=== PATIENT | female | born 1995 | race Caucasian/White ===

== ENCOUNTER 2022-08-27 09:09 | Outpatient (CLI) | payer BC, SELFPAY ==
--- NOTE | 2022-08-27 09:15 | CRLHL7_ITS ---
For Patients: As a result of the Century Cures Act, medical imaging exams and procedure reports are released immediately into your electronic medical record. You may view this report before your referring provider. If you have questions, please contact your health care provider. LEFT BREAST ULTRASOUND INDICATION: 27-year-old female. Palpable abnormality since June 2022. The patient states that this lump has been growing and there is now some discomfort or pain associated with this. TECHNIQUE: Directed LEFT breast ultrasound with this radiologist present. FINDINGS: At the 10 o`clock position 5 cm from the nipple is a fairly well circumscribed predominantly solid nodule measuring 1.0 x 0.7 x 1.1 cm. There are two very tiny cystic components associated with this nodule. There is some posterior shadowing. An ultrasound-guided biopsy is recommended for further characterization. These findings were discussed in detail with the patient. She agrees to this course of action. IMPRESSION: Predominantly solid shadowing nodule 10 o`clock position 5 cm from the nipple measuring up to nearly 1.1 cm. Ultrasound-guided biopsy and clip placement is recommended. BI-RADS Category 4: Suspicious A lay language report of this examination will be provided to the patient. Dictated by: Surendra Nicole MD @08/27/2022 10:20:49 AM tom/Dictated by: Surendra Nicole MD @ 08/27/2022 10:20:00 AM (Electronically Signed)
== END 2022-08-27 09:10 | disposition home or self-care (01) ==
LOC: US 09:09
PROVIDERS: Visit Provider Physician Assistant
DX: N63.20 Unspecified lump in the left breast, unspecified quadrant (principal)
CPT/HCPCS: 76642

== ENCOUNTER 2022-08-31 08:52 | Outpatient (CLI) | payer BC, SELFPAY ==
--- NOTE | 2022-08-31 09:15 | CRLHL7_ITS ---
For Patients: As a result of the Century Cures Act, medical imaging exams and procedure reports are released immediately into your electronic medical record. You may view this report before your referring provider. If you have questions, please contact your health care provider. ULTRASOUND-GUIDED BREAST BIOPSY AND POST-BIOPSY DIGITAL MAMMOGRAM FOR BIOPSY MARKER PLACEMENT CLINICAL HISTORY: Indeterminate nodule. COMPARISON STUDIES: Ultrasound 08/27/2022. TECHNIQUE: Real-time ultrasound with image documentation was used for targeting the breast lesion. Core biopsy specimens were obtained using an automated gun with a 18-gauge biopsy needle. Post-biopsy CC and ML digital mammograms were obtained to document position of the biopsy marker. CONSENT and TIME OUT: The procedure, risks, and alternatives were explained to the patient and a consent was signed. [place] Protocol was followed including pre-procedure verification that relevant information/documentation was available, reviewed and properly matched to the patient; consent accurate and complete; and equipment and supplies available. Time Out was conducted just prior to starting procedure to verify the four required elements: patient identity, correct side/site marked (if applicable), procedure, relevant images/results properly labeled and displayed (if applicable). PROCEDURE: The patient was positioned supine on the ultrasound table. The breast was prepped with ChloraPrep. 8 cc of 1% lidocaine was injected for local anesthesia. Core samples were obtained. A sterile metal biopsy clip was placed percutaneously to brendan the lesion position within the breast. The specimens were placed in 10% formalin and sent to the pathology department. Pressure was held on the biopsy site until all bleeding subsided. The skin incision was closed with Steri-Strips. An ice pack was positioned over the biopsy site. Post-biopsy instructions were reviewed with the patient, and a written copy was given to her. LATERALITY: LEFT breast. LESION: Hypoechoic solid nodule measuring 10 x 7 x 11 millimeters at 10 o`clock 5 cm from the nipple. SUSPICION FOR MALIGNANCY: Low. NUMBER OF SAMPLES: 5. BIOPSY CLIP SHAPE: Oval. PROXIMITY OF CLIP TO TARGET: Within the lesion. IMPRESSION: Ultrasound-guided breast biopsy. When the pathology report is available, an addendum to this report will be made. ACR not applicable Dictated by Tj Oliveira MD @ 08/31/2022 10:00:55 AM jj/Dictated by: Tj Oliveira MD @ 08/31/2022 10:00:00 AM ----ADDENDUM---- Pathology consistent with benign fat necrosis, fibrosis and inflammation. No evidence of malignancy. Findings are concordant. Routine clinical follow-up and age-appropriate screening mammography. Dictated by: Tj Oliveira MD @09/04/2022 8:38:56 AM Signed by:?Tj Oliveira MD @09/04/2022 3:08:09 PM (Electronically Signed)
--- NOTE | 2022-08-31 10:00 | CRLHL7_ITS ---
For Patients: As a result of the Century Cures Act, medical imaging exams and procedure reports are released immediately into your electronic medical record. You may view this report before your referring provider. If you have questions, please contact your health care provider. PLEASE SEE ULTRASOUND-GUIDED LEFT BREAST BIOPSY PERFORMED SAME DAY CRL:ishan olmstead/Dictated by: Tj Oliveira MD @ 08/31/2022 10:00:00 AM (Electronically Signed)
== END 2022-08-31 08:53 | disposition home or self-care (01) ==
LOC: US 08:52
PROVIDERS: Visit Provider Physician Assistant
DX: N63.20 Unspecified lump in the left breast, unspecified quadrant (principal); R92.8 Other abnormal and inconclusive findings on diagnostic imaging of breast
CPT/HCPCS: 19083; 77065; 88305; A4648; A4649

== ENCOUNTER 2023-09-16 10:47 | Day surgery (SDC) | payer BC, SELFPAY ==
[2023-09-16 10:53] VITALS: BP 131/88; PULSE 85; RESP 16; TEMP 36.4; O2SAT 97; BMI 45.7
[2023-09-16 11:12] LABS: Appearance Urine Clear (Clear); Bilirubin Urine Negative (Negative); Blood Urine Negative (Negative); Color Urine Yellow (Yellow); Glucose Urine Negative (Negative); Ketones Urine Negative (Negative); Leukocyte Esterase Urine Negative (Negative); Nitrite Urine Negative (Negative); Protein Urine Negative (Negative); Urobilinogen Urine 0.2 (0.2-1.0); pH Urine 7.5 (5.0-8.5)
--- NOTE | 2023-09-16 12:17 | US_ITS ---
Patient: SLIM BRITO Facility:?[facility] Patient ID:?[id number] Site Patient ID:?[id number]. Site :?[id number] Study:?US-Abdomen -09/16/2023 12:49:05 PM Ordering Physician:ALMA HO Final Report: INDICATION: RUQ PAIN COMPARISON: none TECHNIQUE: Real time cardona scale imaging and color Doppler analysis was performed of the right upper quadrant. FINDINGS: The patient`s liver is of normal size and has uniform echogenicity. There is a normal appearance of the hepatic IVC and proximal abdominal aorta. There is no evidence of ascites. The gallbladder is distended and there are small layering stones and echogenic sludge. The gallbladder wall measures 3 mm in thickness. The common bile duct is of normal size and measures 6 mm in diameter at the level of the rebecca hepatis. The pancreas appears normal. There is no evidence of a stone or hydronephrosis within the right kidney. The right kidney measures 10.0 cm in length. IMPRESSION: Small layering stones and a mild amount of layering echogenic sludge within the gallbladder lumen consistent with cholelithiasis. The gallbladder is distended without biliary duct obstruction. Findings are most consistent with cholelithiasis although can not exclude early cholecystitis. Dictated by Tj Oliveira MD @ 09/16/2023 12:54:19 PM Signed by:?Tj Oliveira MD @09/16/2023 12:54:19 PM (Electronic Signature)
[2023-09-16 12:26] LABS: RBC Urine 0-2 (0-2); Squamous Epithelial Cell Urine Moderate (None-Few); WBC Urine 0-2 (0-5)
[2023-09-16] MEDS: KETOROLAC 15 MG/ML inj IVP ×2 (12:40→16:58)
--- NOTE | 2023-09-16 12:44 | ED_ITS ---
HPI - General Adult General Date Seen: 09/16/23 Chief complaint: Flank Pain Stated complaint: Upper abdominal pain Time Seen by Provider: 09/16/23 10:57 History of Present Illness HPI narrative: This is a very pleasant 28-year-old female with a history of anxiety (on Lexapro), but otherwise healthy. No previous surgical history. She presents to the ER today with her for evaluation of right upper quadrant abdominal pain radiating to right flank and right shoulder blade. She does recall that she had an episode of pain that occurred about 10 days or 2 weeks ago and went away after about 30 minutes. She has been healthy and well since then. She had [place] and potatoes for Ketto's dinner last night. She was awoken from sleep at about 4:00 a.m. this morning with intense pain in the right upper quadrant and right flank. It feels like a sharp pain. It radiates to the right shoulder blade. She has been mildly nauseous but no vomiting. Bowel movements normal. Urination normal. No fever or chills. No rash. No urinary symptoms. Related Data Home Medications Medication Instructions Recorded Confirmed venlafaxine 150 mg 150 mg PO QAM 08/20/22 09/16/23 capsule,extended release 24 hr omeprazole 09/16/23 Allergies Allergy/AdvReac Type Severity Reaction Status Date / Time buspirone [From BuSpar] Allergy Mild Depression Verified 09/16/23 10:57 [facility] Medical History History of anxiety History of depression History of migraine History of premature rupture of membranes (PPROM) (03/13/21) Surgical History History of wisdom tooth extraction (2011) Family History (Updated 08/20/22 @ 13:17 by Cynthia Luong PA-C) Mother Migraine Paternal Grandfather Heart disease Maternal Grandfather Melanoma Social History (Updated 08/20/22 @ 13:18 by Cynthia Luong PA-C) Narrative: [id number] mom. . Nonsmoker. 1-2 drinks per month. No illicit drug use. Smoking Status: Never smoker How often do you have a drink containing alcohol: 2-4 times a month AUDIT-C Alcohol total score: 2 Non-prescribed substance use: denies use Exam Narrative: Exam Narrative: Constitutional: Appears well-developed and well-nourished. Alert. Uncomfortable, but Conversant. Non toxic. HENT: Head: Atraumatic. Nose: Nose normal. Mouth/Throat: Oral mucosa is clear and moist. no trismus. Pharynx normal. Tonsils symmetric. No tonsillar enlargement, erythema, or exudate. Eyes: Conjunctivae normal. EOM normal. Pupils equal, round, and reactive to light. No scleral icterus. Neck: Normal range of motion. Neck supple. No tracheal deviation present. Cardiovascular: Normal rate, regular rhythm. No gallop. No friction rub. No murmur heard. Symmetric radial artery pulses Pulmonary/Chest: Effort normal. No stridor. No respiratory distress. No wheezes. No rales. No rhonchi . No tenderness. Abdominal: Soft. Bowel sounds normal. No distension. No mass. Marked right upper quadrant tenderness. Positive Lopez sign. Mild right CVA tenderness. No right lower quadrant, suprapubic, or left-sided abdominal tenderness. No rebound. No guarding. Musculoskeletal: RUE: Normal range of motion. No tenderness. No deformity LUE: Normal range of motion. No tenderness. No deformity RLE: Normal range of motion. No edema. No tenderness. No deformity LLE: Normal range of motion. No edema. No tenderness. No deformity Neurological: Alert and oriented to person, place, and time. Normal strength. CN II-VII intact. No sensory deficit. GCS eye subscore is 4. GCS verbal subscore is 5. GCS motor subscore is 6. Normal coordination Skin: Skin is warm and dry. No rash noted. No pallor. Normal capillary refill. Psychiatric: Normal mood. Normal affect, allowing for discomfort. Const: Vital Signs, click to edit/add: Vital Signs - 24 hr 09/16/23 10:53 Temperature 97.6 F Pulse Rate [Right Pulse Oximeter] 85 Respiratory Rate 16 Blood Pressure [Ri ght Upper Arm] 131/88 Pulse Oximetry 97 Oxygen Delivery Me thod Room Air Course Vital Signs Vital signs: Initial Vital Signs Temperature 97.6 F 09/16/23 10:53 Temperature Source Temporal Artery Scan 09/16/23 10:53 Pulse Rate 85 09/16/23 10:53 Respiratory Rate 16 09/16/23 10:53 Blood Pressure 131/88 09/16/23 10:53 Blood Pressure Mean 102 09/16/23 10:53 Blood Pressure Position Sitting 09/16/23 10:53 Pulse Oximetry 97 09/16/23 10:53 Oxygen Delivery Method Room Air 09/16/23 10:53 Vital Signs Temperature 97.6 F 09/16/23 10:53 Pulse Rate 85 09/16/23 10:53 Respiratory Rate 16 09/16/23 10:53 Blood Pressure 131/88 09/16/23 10:53 Pulse Oximetry 97 09/16/23 10:53 Oxygen Delivery Method Room Air 09/16/23 10:53 Temperature 97.5 F L 09/16/23 15:57 Pulse Rate 73 09/16/23 15:57 Respiratory Rate 16 09/16/23 15:57 Blood Pressure 161/83 H 09/16/23 15:57 Pulse Oximetry 100 09/16/23 15:57 Oxygen Delivery Method Room Air 09/16/23 15:57 Medications Administered Medications: Generic Name Dose Route Start Last Admin Trade Name Freq PRN Reason Stop Dose Admin Dextrose/Sodium Chloride 1,000 mls @ 125 mls/hr 09/16/23 15:25 09/16/23 15:32 5 % Dextrose/0.9% Sod Chloride IV 125 mls/hr .Q8H MESHA Administration Discontinued Medications Generic Name Dose Route Start Last Admin Trade Name Freq PRN Reason Stop Dose Admin Ketorolac Tromethamine 15 mg 09/16/23 12:17 09/16/23 12:40 Ketorolac 15 Mg/Ml Inj IVP 09/16/23 12:18 15 mg ONCE ONE Administration Medical Decision Making [facility] Narrative Medical decision making narrative: Presented to the Emergency Department with right upper quadrant abdominal pain radiating to her right flank and right shoulder blade. Initial clinical suspicion is for possible acute cholecystitis versus biliary colic. Rule out choledocholithiasis, gallstone pancreatitis. The differential diagnosis of abdominal pain includes: Appendicitis, Bowel Obstruction, Ulcer, Ischemia, right-sided Diverticulitis, Pancreatitis, UTI, kidney stone, Enteritis/Colitis, amongst many other etiologies. Urinalysis is normal. Gallbladder ultrasound confirms gallstones and possible early mild cholecystitis. Common bile duct is normal on the gallbladder ultra sound. LFTs are abnormal with transaminases 400 ans 800. Bilirubin is normal. White count normal. Lipase normal. Discussed with surgery, Dr. Dias. She agrees that this point the patient needs urgent (but not emergent) cholecystectomy. Dr. Dias does not feel the patient needs ERCP or MRCP. If the patient's pain is resolved would be appropriate to discharge and follow-up with surgery tomorrow in clinic. If ongoing pain, admit to the hospital for pain control and NPO status. No antibiotics at this time. Re-evaluated discussed with the patient. Pain is much improved after Toradol but still going on. She is not comfortable discharging to home. Admission arranged with hospitalist, Dr. Guadarrama. Should be NPO overnight with plan for surgery consultation and probable shyam cystectomy tomorrow. Lab Data Labs: Lab Results 09/16/23 09/16/23 09/16/23 Range/Units 11:00 12:02 12:47 WBC 8.74 (4.50-11.00) K/uL RBC 4.69 (4.00-5.20) m/uL Hgb 13.3 (12.0-16.0) gm/dL Hct 40.9 (33.0-51.0) % MCV 87 (80-100) fL MCH 28 (26-34) pg MCHC 33 (32-36) gm/dL RDW Coeff of Artur 13.6 (11.5-15.5) % Plt Count 327 (140-440) K/uL Neut % (Auto) 76.4 H (42.0-72.0) % Lymph % (Auto) 16.7 L (20-44) % [place] % (Auto) 5.6 (0.0-11.0) % Eos % (Auto) 0.3 (0.0-7.0) % Baso % (Auto) 0.2 (0.0-3.0) % Neut # (Auto) 6.70 (1.7-7.0) K/uL Lymph # (Auto) 1.50 (0.90-2.90) K/uL [place] # (Auto) 0.50 (0.00-0.90) K/UL Eos # (Auto) 0.03 (0.00-0.50) K/uL Baso # (Auto) 0.02 (0.00-0.30) K/uL Abs Immat Gran (auto) 0.07 (0.00-0.30) K/uL Imm/Tot Granulo (auto) 0.8 % Sodium 138 (135-149) mmol/L Potassium 4.1 (3.6-5.1) mmol/L Chloride 106 (96-114) mmol/L Carbon Dioxide 25 (20-32) mmol/L Anion Gap 7 (7-15) mEq/L BUN 14 (5-24) mg/dL Creatinine 0.5 (0.5-1.5) mg/dL Estimated Creat Clear 130.12 Estimated GFR 129 ml/min Glucose 104 (60-115) mg/dL Calcium 9.4 (8.4-10.6) mg/dL Total Bilirubin 1.4 (0.1-1.5) mg/dL AST 821 H (12-35) U/L ALT 481 H (4-35) U/L Alkaline Phosphatase 94 (40-150) U/L Total Protein 8.1 (6.0-8.3) g/dL Albumin 4.6 (3.3-5.0) g/dL Lipase 81 (23-300) U/L Urine Color Yellow (Yellow) Urine Appearance Clear (Clear) Urine pH 7.5 (5.0-8.5) Ur Specific [place] 1.020 (1.000-1.030) Urine Protein Negative (Negative) Urine Glucose (UA) Negative (Negative) Urine Ketones Negative (Negative) Urine Blood Negative (Negative) Urine Nitrite Negative (Negative) Urine Bilirubin Negative (Negative) Urine Urobilinogen 0.2 (0.2-1.0) Ur Leukocyte Esterase Negative (Negative) Urine RBC 0-2 (0-2) Urine WBC 0-2 (0-5) Ur Squamous Epith Cells Moderate A (None-Few) Urine Bacteria None (None) Urine HCG, Qual Negative (Negative) Lab Acknowledgement Test Added Imaging Data US gallbladder: Attestation: I have reviewed the pertinent imaging results. Radiologist's impression: IMPRESSION: Small layering stones and a mild amount of layering echogenic sludge within the gallbladder lumen consistent with cholelithiasis. The gallbladder is distended without biliary duct obstruction. Findings are most consistent with cholelithiasis although can not exclude early cholecystitis. Discharge Plan Discharge Clinical Impression: Abnormal LFTs, Acute cholecystitis
[2023-09-16 13:14] LABS: Chloride* 106 mmol/L (96-114)
[2023-09-16 13:15] LABS: Albumin* 4.6 g/dL (3.3-5.0); Potassium* 4.1 mmol/L (3.6-5.1); Sodium* 138 mmol/L (135-149)
[2023-09-16 13:18] LABS: Alanine Aminotransferase* 481 U/L (4-35); Alkaline Phosphatase* 94 U/L (40-150); Anion Gap 7 mEq/L (7-15); Bilirubin Total* 1.4 mg/dL (0.1-1.5); Blood Urea Nitrogen* 14 mg/dL (5-24); Calcium* 9.4 mg/dL (8.4-10.6); Carbon Dioxide* 25 mmol/L (20-32); Creatinine* 0.5 mg/dL (0.5-1.5); Est. Creatinine Clearance* 130.12; Estimated Glomerular Filt Rate 129 ml/min; Glucose* 104 mg/dL (60-115); Lipase* 81 U/L (23-300); Total Protein* 8.1 g/dL (6.0-8.3)
[2023-09-16 13:19] LABS: Basophils Absolute Auto 0.02 K/uL (0.00-0.30); Basophils Percent Auto 0.2 % (0.0-3.0); Eosinophils Absolute Auto 0.03 K/uL (0.00-0.50); Eosinophils Percent Auto 0.3 % (0.0-7.0); Hematocrit 40.9 % (33.0-51.0); Hemoglobin* 13.3 gm/dL (12.0-16.0); Immature Granulocytes Abs Auto 0.07 K/uL (0.00-0.30); Immature Granulocytes Pct Auto 0.8 %; Lymphocytes Percent Auto 16.7 % (20-44); Mean Corpuscular HGB Conc 33 gm/dL (32-36); Mean Corpuscular Hemoglobin 28 pg (26-34); Mean Corpuscular Volume 87 fL (80-100); Monocytes Percent Auto 5.6 % (0.0-11.0); Neutrophils Percent Auto 76.4 % (42.0-72.0); Platelet Count* 327 K/uL (140-440); RDW Coefficient of Variation % 13.6 % (11.5-15.5); Red Blood Count 4.69 m/uL (4.00-5.20); Slide Review Reflex No; White Blood Count* 8.74 K/uL (4.50-11.00)
[2023-09-16 13:25] LABS: Aspartate Amino Transferase* 821 U/L (12-35)
[2023-09-16 15:06] LABS: Ur HCG Qualitative* Negative (Negative)
[2023-09-16] MEDS: 5 % DEXTROSE/0.9% SOD CHLORIDE 1,000 ML 125 ML IV (15:32)
[2023-09-16 15:57] VITALS: BP 161/83; PULSE 73; RESP 16; TEMP 36.4; O2SAT 100; BMI 46.0
[2023-09-16 16:17] VITALS: RESP 16; O2SAT 100
--- NOTE | 2023-09-16 16:23 | P.IMHP_ITS ---
Hospitalist- H&P: HPI History of Present Illness Date Seen: 09/16/23 Chief complaint: Upper abdominal pain Narrative: Nicolasa Monroy is a previously healthy 28 year old female with a past medical history significant for depression and obesity who presented to the ER with RUQ abdominal pain. She states that she had an episode of similar pain about 2 weeks ago that lasted for about 24 hours, but was self resolved. It recurred this morning and has been unrelenting so she sought care. Pain radiates to her right shoulder. She has not had any vomiting, but notes some nausea. She denies any change in her bowels and his currently menstruating. She denies any fevers or chills and has no other concerning symptoms. In the ER, her laboratory work up was reassuring with no leukocytosis, no evidence of UTI and normal BMP. She does have significantly elevated AST at 821 and ALT of 421. Alkaline phosphatase, bilirubin and lipase are all within normal limits. Exam was notable for a positive Lopez's sign and US confirms gallstones and sludge. There is no definite evidence of cholecystitis, but may be early. Her pain in the ER responded to toradol. The ER physician reportedly spoke with Dr. Dias from general surgery who will plan for lap shyam tomorrow. Patient was offered to go home and return for surgery tomorrow vs stay overnight for ongoing symptom management. Patient elected to stay as her pain has been difficult to control. She is admitted under observation for symptomatic cholelithiasis vs early cholecystitis. Per ER, general surgery did not request antibiotic use or MRCP. Review of Systems Status of ROS: Reports: 10 or more systems reviewed and unremarkable except as noted in History and below [facility] Medical History History of anxiety History of depression History of migraine History of premature rupture of membranes (PPROM) (03/13/21) Surgical History History of wisdom tooth extraction (2011) Family History (Updated 08/20/22 @ 13:17 by Cynthia Luong PA-C) Mother Migraine Paternal Grandfather Heart disease Maternal Grandfather Melanoma Social History (Updated 08/20/22 @ 13:18 by Cynthia Luong PA-C) Narrative: [id number] mom. . Nonsmoker. 1-2 drinks per month. No illicit drug use. Smoking Status: Never smoker How often do you have a drink containing alcohol: 2-4 times a month AUDIT-C Alcohol total score: 2 Non-prescribed substance use: denies use Meds Home Medications and Allergies Home Medications Medication Instructions Recorded Confirmed Type venlafaxine 150 mg 150 mg PO QAM 08/20/22 09/16/23 History capsule,extended release 24 hr omeprazole 20 mg capsule,delayed 20 mg PO DAILY 09/16/23 09/16/23 History release Allergies Allergy/AdvReac Type Severity Reaction Status Date / Time buspirone [From BuSpar] Allergy Mild Depression Verified 09/16/23 10:57 Exam Narrative: Exam Narrative: General: Well appearing, mildly uncomfortable. HEENT: NCAT, MMM, Mallampati class 1 Resp: Breathing is comfortable and unlabored, CTAB CV: RRR, no m/g/r Abd: Obese, tender in RUQ, no clear hepatosplenomegaly but exam limited by body habitus Extremities: No pitting edema Skin: Warm and dry, no rash on observed skin Neuro: Alert, oriented, moving all extremities with no lateralizing deficits noted Const: Vital Signs, click to edit/add: Vital Signs - 24 hr 09/16/23 10:53 09/16/23 15:57 Temperature 97.6 F 97.5 F L Pulse Rate [Pulse Oximeter] 73 Pulse Rate [Right Pulse Oximeter] 85 Respiratory Rate 16 16 Blood Pressure [Le ft Arm] 161/83 H Blood Pressure [Ri ght Upper Arm] 131/88 Pulse Oximetry 97 100 Oxygen Delivery Me thod Room Air Room Air Hospitalist - H&P: Result Labs Labs: Short CBC 09/16/23 Range/Units 12:47 WBC 8.74 (4.50-11.00) K/uL Hgb 13.3 (12.0-16.0) gm/dL Hct 40.9 (33.0-51.0) % Plt Count 327 (140-440) K/uL BMP 09/16/23 12:47 Sodium 138 Potassium 4.1 Chloride 106 Carbon Dioxide 25 BUN 14 Creatinine 0.5 Glucose 104 Calcium 9.4 Liver Function 09/16/23 Range/Units 12:47 Total Bilirubin 1.4 (0.1-1.5) mg/dL AST 821 H (12-35) U/L ALT 481 H (4-35) U/L Alkaline Phosphatase 94 (40-150) U/L Albumin 4.6 (3.3-5.0) g/dL Urine 09/16/23 Range/Units 11:00 Urine Color Yellow (Yellow) Urine Appearance Clear (Clear) Urine pH 7.5 (5.0-8.5) Ur Specific [place] 1.020 (1.000-1.030) Urine Protein Negative (Negative) Urine Glucose (UA) Negative (Negative) Imaging US - abdomen: Radiologist's impression: Small layering stones and a mild amount of layering echogenic sludge within the gallbladder lumen consistent with cholelithiasis. The gallbladder is distended without biliary duct obstruction. Findings are most consistent with cholelithiasis although can not exclude early cholecystitis. Assessment and Plan Assessment and plan (1) Acute cholecystitis: Problem comment: Patient presented with her second episode of right upper quadrant pain. Work up is concerning for early cholecystitis with cholelithiasis and sludge as well as a positive Lopez's sign. No leukocytosis or fevers. ER consulted with general surgeon, Dr. Dias, who will plan for lap shyam tomorrow and did not request MRCP or antibiotics. She is admitted overnight for pain control. Patient is obese, but no other comorbid concerning issues. No personal or family history of reactions to anesthesia, blood clots or early heart disease. -Clear liquid diet until midnight, then NPO -Zofran for nausea -Pain control -Appreciate general surgery Status: Acute (2) Abnormal LFTs: Problem comment: Patient denies significant alcohol use, but did have drinks last night as it was Crand[place]'s day. Alk Phos and bili are normal, AST and ALT significantly elevated. Suspect she may have passed a stone. No common bile duct dilation noted on US. -Follow LFTs Status: Acute (3) History of depression: Problem comment: Patient has been stable on Venlafaxine for many years -Continue venlafaxine Status: Chronic
--- NOTE | 2023-09-16 18:43 | PC.NURSE ---
End of shift [id number] - Pt arrived from ED at approximately 1545. Pt alert, oriented, cooperative. Pt reported pain in RUQ and R side as 5/10 on arrival. Pt reported pain increased with deep breaths and with movement. Pain managed with medication per MAR with verbalized improvement. Pt continent of bowel and bladder. Tolerating RA, clear liquid diet. VSS, afebrile, family at bedside. Pt appears to be resting comfortably at end of shift.
[2023-09-16 19:00] VITALS: BP 131/83; PULSE 71; RESP 16; TEMP 36.6; O2SAT 97
[2023-09-16] MEDS: 5 % DEXTROSE/0.9% SOD CHLORIDE 1,000 ML 100 ML IV (22:35)
[2023-09-16] MEDS: KETOROLAC 30 MG/ML inj IVP (23:27)
[2023-09-16] MEDS: SODIUM CHLORIDE 0.9 % (FLUSH) 10 ML SYRINGE 5 ML IVF (23:28)
[2023-09-16 23:30] VITALS: BP 126/71; PULSE 73; RESP 16; TEMP 36.5; O2SAT 97
[2023-09-17] VITALS (14 sets, daily range): BP systolic 96–128; BP diastolic 54–87; PULSE 61–83; RESP 10–16; TEMP 36.3–36.5; O2SAT 91–100
--- NOTE | 2023-09-17 06:47 | PC.NURSE ---
Pt alert and oriented x3. Afebrile. Pt reports 3/10 pain in URQ, pain managed with PRN Toradol. Pt has been NPO since 0000. Pt is up ad lorena in room. VSS. Pt slept throughout most of night. Night uneventful.
[2023-09-17 06:49] LABS: Hematocrit 35.6 % (33.0-51.0); Hemoglobin* 11.4 gm/dL (12.0-16.0); Mean Corpuscular HGB Conc 32 gm/dL (32-36); Mean Corpuscular Hemoglobin 28 pg (26-34); Mean Corpuscular Volume 88 fL (80-100); Platelet Count* 260 K/uL (140-440); Red Blood Count 4.03 m/uL (4.00-5.20); White Blood Count* 4.56 K/uL (4.50-11.00)
[2023-09-17 06:53] LABS: Slide Review Reflex No
[2023-09-17 07:06] LABS: Albumin* 3.3 g/dL (3.3-5.0); Chloride* 110 mmol/L (96-114)
[2023-09-17 07:07] LABS: Sodium* 140 mmol/L (135-149)
[2023-09-17 07:09] LABS: Anion Gap 5 mEq/L (7-15); Bilirubin Total* 1.9 mg/dL (0.1-1.5); Carbon Dioxide* 25 mmol/L (20-32); Creatinine* 0.5 mg/dL (0.5-1.5); Est. Creatinine Clearance* 130.12; Estimated Glomerular Filt Rate 129 ml/min
[2023-09-17 07:10] LABS: Alkaline Phosphatase* 103 U/L (40-150); Blood Urea Nitrogen* 10 mg/dL (5-24); Calcium* 8.2 mg/dL (8.4-10.6); Glucose* 108 mg/dL (60-115); Total Protein* 6.1 g/dL (6.0-8.3)
[2023-09-17] MEDS: 5 % DEXTROSE/0.9% SOD CHLORIDE 1,000 ML 100 ML IV (07:14)
[2023-09-17 07:16] LABS: Aspartate Amino Transferase* 739 U/L (12-35)
[2023-09-17 07:31] LABS: Alanine Aminotransferase* 891 U/L (4-35)
--- NOTE | 2023-09-17 09:45 | P.GSCN_ITS ---
History of Present Illness Consult details Date Seen: 09/17/23 Consult date: 09/17/23 Narrative: 28-year-old female was seen in the emergency room with right upper quadrant abdominal pain and I was asked by Dr. Barragan to see her in consultation. Patient states that yesterday she all of a sudden woke up with right upper quadrant pain. The pain was severe and not resolving. That made the patient come to the emergency room. She had some nausea but no vomiting. Patient had a similar episode of pain that was more severe 2 weeks ago. She also states that she had occasional mild episodes of similar pain that lasted only for an hour. In the emergency room she was found to have a normal WBC of 8.7. Her AST and ALT were elevated at 821 and 481. Her alkaline phosphatase, total bilirubin, and lipase were normal. An ultrasound was obtained that showed a distended gallbladder with cholelithiasis and sludge, the gallbladder wall was 3 mm and the common bile duct was 6 mm. This was concerning for an early acute cholecystitis. Review of Systems Narrative: General: no fevers HENT: no problems swallowing CV: no shortness of breath Resp: no cough GI: No nausea, vomiting, abdominal pain : no dysuria, no increased urinary frequency, no hematuria Skin: no new rashes Musculoskeletal: no back pain Neuro: no muscle weakness Psyche: no depression, no anxiety PFSH PFS Medical History History of migraine ?Z86.69 - Personal history of other diseases of the nervous system and sense organs (ICD-10) History of anxiety ?Z86.59 - Personal history of other mental and behavioral disorders (ICD-10) History of depression ?Z86.59 - Personal history of other mental and behavioral disorders (ICD-10) History of premature rupture of membranes (PPROM) (03/13/21) ?Z87.59 - Personal history of other complications of , childbirth and the puerperium (ICD-10) Surgical History History of wisdom tooth extraction (2011) ?K08.409 - Partial loss of teeth, unspecified cause, unspecified class (ICD- 10) Family History Mother Migraine Paternal Grandfather Heart disease Maternal Grandfather Melanoma Social History Narrative: [id number] mom. . Nonsmoker. 1-2 drinks per month. No illicit drug use. What is your current living situation?: I presently have a place to live Problems where you live: no known problems Problems where you live details: n/a In the past 12 months, utilities in danger of being shut off: no In past 12 months, lack of transportation kept you from medical appts, meetings, work, or getting things needed for daily living: no In the past 12 mos, have been you worried that your food would run out before you had money to buy more?: never true In the past 12 mos, the food you bought just didn't last and you didn't have money to buy more?: never true Smoking Status: Never smoker How often do you have a drink containing alcohol: monthly or less How often do you have six or more drinks on one occasion: Never AUDIT-C Alcohol total score: 1 Non-prescribed substance use: denies use Caffeine: Yes (2 cups coffee/day) How often does anyone, including family, friends and others, physically hurt you : never How often does anyone, including family, friends and others, insult or talk down to you: never How often does anyone, including family, friends and others, threaten you with harm: never How often does anyone, including family, friends and others, scream or curse at you: never Meds Home Medications and Allergies Home Medications Medication Instructions Recorded Confirmed Type venlafaxine 150 mg 150 mg PO QAM 08/20/22 09/16/23 History capsule,extended release 24 hr omeprazole 20 mg capsule,delayed 20 mg PO DAILY 09/16/23 09/16/23 History release Allergies Allergy/AdvReac Type Severity Reaction Status Date / Time buspirone [From BuSpar] Allergy Mild Depression Verified 09/16/23 10:57 Exam Narrative: Exam Narrative: General appearance: Alert, cooperative, and in no distress Pulmonary: Chest symmetric, lungs clear bilaterally Cardiovascular Heart: Regular rate and rhythm, S1, S2, no murmurs/rubs/gallops Gastrointestinal Abdominal: soft, not distended, tender to palpation in the right upper quadrant with equivocal Lopez sign. Skin: Normal skin color, texture, and turgor. No rashes or lesions. Psychiatric: Alert, cooperative, normal affect. Const: Vital Signs, click to edit/add: Vital Signs - 24 hr 09/16/23 10:53 09/16/23 15:57 09/16/23 15:57 Temperature 97.6 F 97.5 F L Pulse Rate [Pulse Oximeter] 73 Pulse Rate [Right Pulse Oximeter] 85 Respiratory Rate 16 16 16 Blood Pressure [Le ft Arm] 161/83 H Blood Pressure [Ri ght Upper Arm] 131/88 Pulse Oximetry 97 100 100 Oxygen Delivery Me thod Room Air Room Air Room Air 09/16/23 16:17 09/16/23 19:00 09/16/23 23:30 Temperature 97.8 F Pulse Rate [Pulse Oximeter] 71 Pulse Rate [Right Pulse Oximeter] Respiratory Rate 16 16 16 Blood Pressure [Le ft Arm] 131/83 Blood Pressure [Ri ght Upper Arm] Pulse Oximetry 100 97 Oxygen Delivery Me thod Room Air Room Air 09/16/23 23:30 09/17/23 03:35 09/17/23 07:00 Temperature 97.7 F 97.5 F L Pulse Rate [Pulse Oximeter] 73 81 72 Pulse Rate [Right Pulse Oximeter] Respiratory Rate 16 14 16 Blood Pressure [Le ft Arm] 126/71 119/70 Blood Pressure [Ri ght Upper Arm] Pulse Oximetry 97 99 Oxygen Delivery Wa thod Room Air Room Air 09/17/23 07:00 Temperature 97.7 F Pulse Rate [Pulse Oximeter] 72 Pulse Rate [Right Pulse Oximeter] Respiratory Rate 16 Blood Pressure [Le ft Arm] 128/87 Blood Pressure [Ri ght Upper Arm] Pulse Oximetry 100 Oxygen Delivery Me thod Room Air Results Labs Labs: Abnormal lab results 09/16/23 09/16/23 09/17/23 Range/Units 11:00 12:47 06:40 Hgb 11.4 L (12.0-16.0) gm/dL Neut % (Auto) 76.4 H (42.0-72.0) % Lymph % (Auto) 16.7 L (20-44) % Anion Gap 5 L (7-15) mEq/L Calcium 8.2 L (8.4-10.6) mg/dL Total Bilirubin 1.9 H (0.1-1.5) mg/dL AST 821 H 739 H (12-35) U/L ALT 481 H 891 H (4-35) U/L Ur Squamous Epith Cells Moderate A (None-Few) Diabetes panel 09/16/23 09/17/23 Range/Units 12:47 06:40 Sodium 138 140 (135-149) mmol/L Potassium 4.1 4.0 (3.6-5.1) mmol/L Chloride 106 110 (96-114) mmol/L Carbon Dioxide 25 25 (20-32) mmol/L BUN 14 10 (5-24) mg/dL Creatinine 0.5 0.5 (0.5-1.5) mg/dL Glucose 104 108 (60-115) mg/dL Calcium 9.4 8.2 L (8.4-10.6) mg/dL AST 821 H 739 H (12-35) U/L ALT 481 H 891 H (4-35) U/L Alkaline Phosphatase 94 103 (40-150) U/L Total Protein 8.1 6.1 (6.0-8.3) g/dL Albumin 4.6 3.3 (3.3-5.0) g/dL Calcium panel 09/16/23 09/17/23 Range/Units 12:47 06:40 Calcium 9.4 8.2 L (8.4-10.6) mg/dL Albumin 4.6 3.3 (3.3-5.0) g/dL Pituitary panel 09/16/23 09/17/23 Range/Units 12:47 06:40 Sodium 138 140 (135-149) mmol/L Potassium 4.1 4.0 (3.6-5.1) mmol/L Chloride 106 110 (96-114) mmol/L Carbon Dioxide 25 25 (20-32) mmol/L BUN 14 10 (5-24) mg/dL Creatinine 0.5 0.5 (0.5-1.5) mg/dL Glucose 104 108 (60-115) mg/dL Calcium 9.4 8.2 L (8.4-10.6) mg/dL Adrenal panel 09/16/23 09/17/23 Range/Units 12:47 06:40 Sodium 138 140 (135-149) mmol/L Potassium 4.1 4.0 (3.6-5.1) mmol/L Chloride 106 110 (96-114) mmol/L Carbon Dioxide 25 25 (20-32) mmol/L BUN 14 10 (5-24) mg/dL Creatinine 0.5 0.5 (0.5-1.5) mg/dL Glucose 104 108 (60-115) mg/dL Calcium 9.4 8.2 L (8.4-10.6) mg/dL Total Bilirubin 1.4 1.9 H (0.1-1.5) mg/dL AST 821 H 739 H (12-35) U/L ALT 481 H 891 H (4-35) U/L Alkaline Phosphatase 94 103 (40-150) U/L Total Protein 8.1 6.1 (6.0-8.3) g/dL Albumin 4.6 3.3 (3.3-5.0) g/dL All other labs normal. Progress Note:A&P Assessment and plan (1) Acute cholecystitis: Status: Acute Plan 28-year-old female admitted to the hospital with early acute cholecystitis. I discussed with the patient and her her laboratory and imaging fin dings. Her clinical exam and her ultrasound findings are concerning for acute cholecystitis. I recommended to proceed with laparoscopic cholecystectomy. The procedure was discussed in detail. The risks associated procedure including infection, bleeding, injury to intra-abdominal organs, and injury to the common bile duct were all discussed with the patient, and she agreed to proceed. Patient has been NPO today.
[2023-09-17] MEDS: CEFAZOLIN 2 GM INJ IVP (10:24)
--- NOTE | 2023-09-17 11:20 | W.ANESCHARGE ---
Anesthesia Charges Start Date/Time Anesthesia Start Date: 09/17/23 Anesthesia Start Time: 10:36 Stop Date/Time Anesthesia Stop Date: 09/17/23 Anesthesia Stop Time: 11:51
[2023-09-17] MEDS: BUPIVACAINE 0.25% 30 ML INJECTION (11:31)
--- NOTE | 2023-09-17 11:39 | PC.NURSE ---
Pt friendly and cooperative, VS WNL and LS COA. C/o 11/09 RUQ discomfort and declined pain medications prior to surgery. at bedside.
--- NOTE | 2023-09-17 11:52 | P.GSOP_ITS ---
Operative Note Date of procedure: 09/17/23 Pre-op diagnosis: 1. Acute cholecystitis. Post-op diagnosis: Same Type of Procedure: 1. Laparoscopic cholecystectomy. Indications: 28-year-old female presented to emergency room with right upper quadrant pain that was not improving getting worse. She had nausea but no vomiting. She had previous similar episodes of pain that resolved spontaneously. On clinical exam patient had tenderness to palpation in the right upper quadrant. Upon her workup in the emergency room she was found to have normal WBC. Her AST and ALT were elevated but bilirubin and alkaline phosphatase were normal. An ultrasound of the gallbladder was obtained that showed distended gallbladder with gallbladder wall of 3 mm. Her common bile duct was normal. Given patient's clinical history and her laboratory and imaging findings, acute cholecystitis was suspected, and laparoscopic cholecystectomy was recommended. The procedure was discussed in detail. The risks associated procedure including infection, bleeding, injury to intra-abdominal organs, and injury to the common bile duct were all discussed with the patient, and she agreed to proceed. Procedure Description: After discussing the risks and benefits of the procedure, the patient signed informed consent.? The operative site was marked and the patient was brought to the operating room and placed on the operating table in supine position.? Care was taken to pad the patient's pressure points.?? The patient was then Intubated by anesthesia.?? The operative site was then prepped and draped in the usual sterile fashion.? A time-out was then performed. A 5-mm laparoscopy port was placed in the left upper quadrant guided by a 5-mm laparoscope placed into a translucent trochar.~ Passage through the layers of the abdominal wall was visualized with the laparoscope.~ A pneumoperitoneum was established. A 0-degree 5-mm laparoscope was advanced into the abdomen. The abdomen was briefly surveyed, and no adhesions were noted. A 10-mm port were placed infraumbilically and two more 5 mm ports were placed on the right under direct visualization by laparoscope. The camera was then changed to 10 mm 30- degree scope and placed into the abdomen through the 10 mm port. The left upper quadrant port entrance was examined and no injury to intra-abdominal organs was identified. The gallbladder was identified. I was not able to grasp the gallbladder because it was distended. With laparoscopic needle and 60 mL syringe at least 30 mL of dark green bile was aspirated from the gallbladder. The needle was then removed. The gallbladder was grasped and retracted cephalad. The infundibulum was grasped and retracted laterally, exposing the peritoneum overlying the triangle of Calot. This was then divided and exposed in a blunt fashion and with hook cautery. Common bile duct was not identified but care was taken not to injure it. The cystic duct was clearly identified and bluntly dissected circumferentially. Cystic artery was identified and tissues around it were dissected off. The cystic artery and the cystic duct were clearly going into the gallbladder. The cystic duct was then doubly ligated with surgical clips on the patient's side and singly clipped on the gallbladder side and divided. The cystic artery was then similarly ligated with clips and divided as well. The gallbladder was dissected from the liver bed. In the lateral peritoneal edge In the gallbladder fossa, bleeding was seen. This was coming from a small artery coursing along the gallbladder. The bleeding was controlled with 5 mm clips proximally and distally. Edema was noted during the dissection of the gallbladder. When the gallbladder was free from the gallbladder fossa, it was placed into an Endo-Catch bag and removed through the infraumbilical incision. Surgical site was examined for bleeding. No bleeding was seen in the surgical field. The fascia of the infraumbilical incision was then closed with 0-0 vicryl using Stephane Jarocho needle under direct visualization. Pneumoperitoneum was completely reduced after viewing removal of the trocars under direct vision. The skin was then closed with 4-0 monocryl and steristrips were applied. Instrument, sponge, and needle counts were correct at closure and at the conclusion of the case. The patient was transferred to PACU in stable condition. Findings: Acute cholecystitis. Anesthesia: GETA Surgeon: Uma Hill MD Estimated blood loss (mL): 10 Specimen: Gallbladder Condition: stable Disposition: PACU
--- NOTE | 2023-09-17 12:03 | W.ANESCHARGE ---
Anesthesia Charges Start Date/Time Anesthesia Start Date: 09/17/23 Anesthesia Start Time: 10:36 Stop Date/Time Anesthesia Stop Date: 09/17/23 Anesthesia Stop Time: 11:51
[2023-09-17] MEDS: LACTATED RINGERS 1000 ML 1,000 ML 35 ML IV (12:17)
[2023-09-17] MEDS: HYDROCODONE-ACETAMIN 5-325 MG 1 TAB PO (13:00)
--- NOTE | 2023-09-17 13:37 | PM.EN ---
Chart Event Note Time Seen by Provider: 09:30 Date Seen: 09/17/23 Chart Event Note: Abdominal discomfort improved slightly overnight. She has had a consultation with her general surgeon and intends on proceeding with laparoscopic cholecystectomy today. Answered patient's and patient's 's questions to their satisfaction. Agree with plan of care. Hospital Medicine team will sign off patient at this time. General surgery will re-consult hospital medicine team if indicated.
== END 2023-09-17 13:41 | disposition home or self-care (01) ==
LOC: ED 12:23 → MEDSURG 09-17 07:13 → SS 09-17 10:46
PROVIDERS: Family Medicine; Emergency Provider Emergency Medicine; Visit Provider Surgery
PROC: 0FT44ZZ Resection of Gallbladder, Percutaneous Endoscopic Approach (ICD-10-PCS; CPT 47562; principal; 2023-09-17 10:30)
DX: K80.00 Calculus of gallbladder with acute cholecystitis without obstruction (principal); R74.01 Elevation of levels of liver transaminase levels; F41.9 Anxiety disorder, unspecified; F32.A Depression, unspecified
CPT/HCPCS: 47562; 00790; 36415; 76705; 80053; 81003; 81015; 81025; 83690; 85025; 85027; 87081; 88304; 99284; A9270; G0378; J0330; J0665; J0690; J1100; J1885; J2250; J2371; J2405; J2704; J2710; J3010; J7042; J7120

== ENCOUNTER 2023-12-09 13:53 | Outpatient (CLI) | payer BC, SELFPAY ==
--- NOTE | 2023-12-09 14:00 | US_ITS ---
Patient: SLIM BRITO Facility:?[facility] Patient ID:?[id number] Site Patient ID:?[id number]. Site :?[id number] Study:?US-OB Pelvis DATING AND VIABILITY-12/09/2023 2:46:12 PM Ordering Physician:?PRETTY PRO Final Report: INDICATION: Dating and viability. Last menstrual period 10/14/2023 (8 weeks 0 days gestational age). TECHNIQUE: Ultrasound OB pelvis transabdominal and transvaginal. Real-time cardona-scale imaging of the pelvis was performed. COMPARISON: None. FINDINGS: There is a single intrauterine gestation. The embryo demonstrates a regular cardiac rate measuring 159 beats per minute. The embryo`s crown rump length measurement of 1.8 cm corresponds to a gestational age of 8 weeks 1 day with a sonographic due date of 07/19/2024. There is a normal appearing yolk sac. There is a thin perigestational hemorrhage along the inferior aspect of the gestational sac on the right measuring 2.4 x 0.4 x 0.8 cm. Corpus luteum is seen within the right ovary measuring up to 2.1 cm. Left ovary is unremarkable in appearance. There are no suspicious fluid collections noted in the cul-de-sac. IMPRESSION: Single viable intrauterine with sonographic gestational age of 8 weeks 1 day by crown-rump length. Thin subchorionic hematoma along the inferior aspect of the gestational sac as described. Dictated by Barbara Leslie MD @ 12/10/2023 11:53:10 AM Signed by:?Barbara Leslie MD @12/10/2023 11:53:10 AM (Electronic Signature)
== END 2023-12-09 13:54 | disposition home or self-care (01) ==
LOC: US 13:54
PROVIDERS: Visit Provider Advanced Practice Midwife
DX: Z34.91 Encounter for supervision of normal pregnancy, unspecified, first trimester (principal); Z3A.08 8 weeks gestation of pregnancy
CPT/HCPCS: 76817; 84443; 86703; 86706; 86803; 86850; 86900; 86901; 87086; 87340

== ENCOUNTER 2023-12-09 15:03 | Outpatient (CLI) | payer BC, SELFPAY | END 2023-12-09 15:04 | disposition home or self-care (01) | PROVIDERS: Visit Provider Advanced Practice Midwife | DX: Z34.91 Encounter for supervision of normal pregnancy, unspecified, first trimester (principal); Z3A.08 8 weeks gestation of pregnancy | CPT/HCPCS: 84443; 86592; 86703; 86704; 86706; 86762; 86787; 86803; 86850; 86900; 86901; 87086; 87340 ==

== ENCOUNTER 2024-03-07 10:25 | Outpatient (CLI) | payer BC, SELFPAY | END 2024-03-07 10:26 | disposition home or self-care (01) | LOC: NFLDREF 03-08 11:23 | PROVIDERS: Visit Provider Advanced Practice Midwife | DX: O99.212 Obesity complicating pregnancy, second trimester (principal); Z68.41 Body mass index [BMI] 40.0-44.9, adult; Z87.51 Personal history of pre-term labor; Z3A.20 20 weeks gestation of pregnancy | CPT/HCPCS: 87086 ==

== ENCOUNTER 2024-04-27 12:52 | Outpatient (CLI) | payer BC, SELFPAY ==
--- NOTE | 2024-04-27 13:00 | CRLHL7_ITS ---
For Patients: As a result of the Century Cures Act, medical imaging exams and procedure reports are released immediately into your electronic medical record. You may view this report before your referring provider. If you have questions, please contact your health care provider. INDICATION: Obesity complicating COMPARISON: 03/24/2024 TECHNIQUE: Real time cardona scale imaging of the fetus was performed. FINDINGS: Sonographic imaging demonstrates a single living intrauterine gestation. Fetus demonstrates a regular cardiac rate of 150 beats per minute. Fetus has a transverse breech position. The placenta lies posteriorly. Amniotic fluid volume appears normal and there is a single deepest vertical pocket: 7.3 cm. The estimated weight is 1345gm which lies at the 81st %. On the prior OB ultrasound exam dated 02/25/2024 the estimated weight was at the 80th%. BPD 91st percentile. HC 90th percentile. 75th percentile. FL 57th percentile. The HC/AC ratio measures 1.12 range (0.98-1.20). IMPRESSION: Sonographic gestational age 29 weeks 4 days and sonographic due date of 07/09/2024. Sonographic age 11 days ahead of the clinical age. Estimated weight 81st percentile. Abdominal circumference 75th percentile. Dictated by Tj Oliveira MD @ 04/28/2024 1:06:33 PM (Electronically Signed)
== END 2024-04-27 12:53 | disposition home or self-care (01) ==
LOC: US 12:52
PROVIDERS: Visit Provider Advanced Practice Midwife
DX: O99.213 Obesity complicating pregnancy, third trimester (principal); Z3A.29 29 weeks gestation of pregnancy
CPT/HCPCS: 76816; 86592

== ENCOUNTER 2024-05-11 10:58 | Outpatient (CLI) | payer BC, SELFPAY | END 2024-05-11 10:59 | disposition home or self-care (01) | LOC: NFLDREF 05-12 09:31 | PROVIDERS: Visit Provider Advanced Practice Midwife | DX: O23.43 Unspecified infection of urinary tract in pregnancy, third trimester (principal); Z3A.30 30 weeks gestation of pregnancy | CPT/HCPCS: 87086 ==

== ENCOUNTER 2024-06-08 10:09 | Outpatient (CLI) | payer BC, SELFPAY ==
--- NOTE | 2024-06-08 10:15 | CRLHL7_ITS ---
For Patients: As a result of the Century Cures Act, medical imaging exams and procedure reports are released immediately into your electronic medical record. You may view this report before your referring provider. If you have questions, please contact your health care provider. INDICATION: Obesity complicating TECHNIQUE: Real time cardona scale imaging of the fetus was performed. COMPARISON: 04/27/2024 FINDINGS: Sonographic imaging demonstrates a single living intrauterine gestation. Fetus demonstrates a regular cardiac rate of 155 beats per minute. Fetus has a vertex position. The placenta lies posteriorly. Amniotic fluid volume appears normal and there is a single deepest pocket of 7.5 cm. The estimated weight is 2761gm which lies at the 90th %. On the prior OB ultrasound dated 04/27/2024 the estimated weight was at the 81st percentile. BPD 97th percentile. HC 82nd percentile. AC 96th percentile. FL 45th percentile. The fetus was active and demonstrated normal breathing movements. There was normal flexion and extension of the trunk and extremities. IMPRESSION: Normal biophysical profile score 8/8. Sonographic gestational age 35 weeks 6 days and sonographic due date of 07/07/2024. Sonographic age 13 days ahead of the clinical age. Estimated weight 90th percentile. Abdominal circumference 96th percentile. Dictated by Tj Oliveira MD @ 06/09/2024 10:00:43 AM (Electronically Signed)
== END 2024-06-08 10:10 | disposition home or self-care (01) ==
LOC: US 10:10
PROVIDERS: Visit Provider Advanced Practice Midwife
DX: O99.213 Obesity complicating pregnancy, third trimester (principal); O36.63X0 Maternal care for excessive fetal growth, third trimester, not applicable or unspecified; Z3A.35 35 weeks gestation of pregnancy
CPT/HCPCS: 76816; 76819

== ENCOUNTER 2024-06-15 10:17 | Outpatient (CLI) | payer BC, SELFPAY ==
--- NOTE | 2024-06-15 10:15 | CRLHL7_ITS ---
For Patients: As a result of the Century Cures Act, medical imaging exams and procedure reports are released immediately into your electronic medical record. You may view this report before your referring provider. If you have questions, please contact your health care provider. INDICATION: High BMI TECHNIQUE: Ultrasound OB pelvis transabdominal. Real-time cardona-scale imaging of the fetus was performed without stress testing. COMPARISON: None. FINDINGS: heart rate: Regular, 150 bpm. position: Cephalic. Amniotic fluid volume single deepest pocket 9.3 cm, but SHAD of 22.9 centimeters 2/2. Images for the following were not saved: motion 2/2. tone 2/2. breathing movements 2/2. Placenta: Posterior. IMPRESSION: Colbert intrauterine with a biophysical profile 03/09. Polyhydramnios with single deepest pocket greater measuring 9.1 centimeters, but with SHAD within normal range at 22.9 centimeters. Dictated by Lizbeth Cochran MD @ 06/16/2024 11:24:32 AM (Electronically Signed)
== END 2024-06-15 10:18 | disposition home or self-care (01) ==
LOC: US 10:17
PROVIDERS: Visit Provider Obstetrics & Gynecology
DX: O99.210 Obesity complicating pregnancy, unspecified trimester (principal); Z68.41 Body mass index [BMI] 40.0-44.9, adult
CPT/HCPCS: 76819

== ENCOUNTER 2024-06-22 10:20 | Outpatient (CLI) | payer BC, SELFPAY ==
--- NOTE | 2024-06-22 10:15 | CRLHL7_ITS ---
For Patients: As a result of the Century Cures Act, medical imaging exams and procedure reports are released immediately into your electronic medical record. You may view this report before your referring provider. If you have questions, please contact your health care provider. INDICATION: High BMI (Obesity complicating ) COMPARISON: 06/15/2024 TECHNIQUE: Real time cardona scale imaging of the fetus was performed. Without non-stress testing. FINDINGS: Sonographic imaging demonstrates a single living intrauterine gestation. Fetus demonstrates a regular cardiac rate of 134 beats per minute. Fetus has a vertex position. The amniotic fluid volume appears normal and there is a single deepest pocket measurement of 7.6 cm. The fetus was active and demonstrated normal breathing movements. There was normal flexion and extension of the trunk and extremities. IMPRESSION: Normal biophysical profile score of 8 out of 8. Dictated by Tj Oliveira MD @ 06/22/2024 12:29:19 PM (Electronically Signed)
== END 2024-06-22 10:21 | disposition home or self-care (01) ==
LOC: US 10:20
PROVIDERS: Visit Provider Obstetrics & Gynecology
DX: O99.210 Obesity complicating pregnancy, unspecified trimester (principal); Z68.41 Body mass index [BMI] 40.0-44.9, adult
CPT/HCPCS: 76819

== ENCOUNTER 2024-06-22 12:07 | Outpatient (CLI) | payer BC, SELFPAY ==
[2024-06-23 12:54] LABS: Strep B DNA Probe Negative (Negative)
[2024-06-23 12:59] LABS: Strep B Susceptibility Needed? No
== END 2024-06-22 12:08 | disposition home or self-care (01) ==
LOC: NFLDREF 12:07
PROVIDERS: Visit Provider Advanced Practice Midwife
DX: Z34.93 Encounter for supervision of normal pregnancy, unspecified, third trimester (principal); Z3A.36 36 weeks gestation of pregnancy
CPT/HCPCS: 87081; 87653

== ENCOUNTER 2024-06-28 10:16 | Outpatient (CLI) | payer BC, SELFPAY ==
--- NOTE | 2024-06-28 10:15 | CRLHL7_ITS ---
For Patients: As a result of the Century Cures Act, medical imaging exams and procedure reports are released immediately into your electronic medical record. You may view this report before your referring provider. If you have questions, please contact your health care provider. INDICATION: High BMI COMPARISON: 06/22/2024 TECHNIQUE: Real time cardona scale imaging of the fetus was performed. Without non-stress testing. FINDINGS: Sonographic imaging demonstrates a single living intrauterine gestation. Fetus demonstrates a regular cardiac rate of 149 beats per minute. Fetus has a vertex position. The amniotic fluid volume appears normal and there is a single deepest pocket measurement of 6.5 cm. The fetus was active and demonstrated normal breathing movements. There was normal flexion and extension of the trunk and extremities. IMPRESSION: Normal biophysical profile score of 8 out of 8. Dictated by Tj Oliveira MD @ 06/28/2024 11:03:58 AM (Electronically Signed)
== END 2024-06-28 10:17 | disposition home or self-care (01) ==
LOC: US 10:17
PROVIDERS: Visit Provider Obstetrics & Gynecology
DX: O99.210 Obesity complicating pregnancy, unspecified trimester (principal)
CPT/HCPCS: 76819

== ENCOUNTER 2024-07-06 10:19 | Outpatient (CLI) | payer BC, SELFPAY ==
--- NOTE | 2024-07-06 10:15 | CRLHL7_ITS ---
For Patients: As a result of the Century Cures Act, medical imaging exams and procedure reports are released immediately into your electronic medical record. You may view this report before your referring provider. If you have questions, please contact your health care provider. INDICATION: Obesity complicating . COMPARISON: 06/28/2024 TECHNIQUE: Real time cardona scale imaging of the fetus was performed. Without non-stress testing. FINDINGS: Sonographic imaging demonstrates a single living intrauterine gestation. Fetus demonstrates a regular cardiac rate of 142 beats per minute. Fetus has a vertex position. The amniotic fluid volume appears normal and there is a single deepest pocket measurement of 7.9 cm. The fetus was active and demonstrated normal breathing movements. There was normal flexion and extension of the trunk and extremities. IMPRESSION: Normal biophysical profile score of 8 out of 8. Dictated by Tj Oliveira MD @ 07/07/2024 9:08:33 AM (Electronically Signed)
== END 2024-07-06 10:20 | disposition home or self-care (01) ==
LOC: US 10:20
PROVIDERS: Visit Provider Obstetrics & Gynecology
DX: O99.210 Obesity complicating pregnancy, unspecified trimester (principal)
CPT/HCPCS: 76819

== ENCOUNTER 2024-07-06 11:32 | Outpatient (CLI) | payer BC, SELFPAY ==
[2024-07-06 11:49] VITALS: PULSE 116; O2SAT 98
[2024-07-06 11:54] VITALS: BP 133/87; PULSE 104; PULSE 93; O2SAT 97
--- NOTE | 2024-07-06 12:01 | P.OBLDTN_ITS ---
OB - Triage/Final Diagnosis Visit Information Date Seen: 07/06/24 Date of evaluation: 07/06/24 Narrative: The patient is a 29 year old 2 para 1001 at 38w0d gestation by LMP confirmed by 1st trimester US, who presents with elevated BP in clinic. No JACK, vision changes, RUQ pain. She has been receiving surveillance. US today revealed BPP 8/8, SDP 7.87, FHR 142. BP in clinic were 134/102 and 132/96. She did have one elevated BP at 35w prenatally, but the recheck was normal. She has been taking a baby aspirin daily prenatally. She has not been monitoring her BP at home. She report good movement and no LOF or vaginal bleeding. No abdominal pain. Contractions not felt. She is scheduled for IOL on 07/13/2024. problem list: #Hx of PPROM and delivery at 32 5/7 weeks gestation Offered early MFM consult, wants-referral sent at 12 weeks MFM recommendations: -TV cervical lengths Q 2 wks until 23-24wks, scheduled with MFM 20 wks WNL 24wks: normal at 23 1/7 as noted below. No additional scans recommended -Urine culture every trimester with aggressive tx of bacteriuria -1st tri-neg -2nd tri- neg -3rd tri - neg #Pre- BMI 47 Baseline Labs to include HgB A1C: 5.1 Referral to reinforcing iron and rebar workers: ordered, did not schedule Referral to anesthesia: ordered, she has declined this Referral to OBGYN: seen by Dr. Kumar 04/04/24 20-week Level II detailed ultrasound, consult with MFM-WNL, cervical length WNL Early screening for GDM (1-hour) at 16-20 weeks: 88, 28w-74 MFM recommendations: -rpt growth at 28 and 34 wks (ordered)-90% at 34wks -weekly BPP at 34 wks for BMI >47-scheduled #Anxiety and depression Managed with Venlafaxine Ultrasounds: 03/08 = 20 6/7 weeks: Normal fluid, posterior placenta, MVP 7.9, cervical length 36.4 mm 03/24 =23 1/7 weeks: breech, SDP 6.8 cm, EFW 79%, AC 75%, normal anatomy, cervical length 34.4 mm ASSESSMENT:?? 31 at 38 0/7 weeks gestation?? complicated by:??Elevated BMI, GHTN, anxiety and depression, currently normotensive, Labs normal Category 1 FHR pattern.??? GBS negative ?? PLAN:?? 1. Reviewed GHTN diagnosis and recommendation to induce labor with reasoning. 2. Reviewed normal lab findings and normotensive currently 3. Patient's preference is to return tomorrow morning for IOL if safe to do so. 4. Reviewed scenario for Dr Doshi. She concurs that it is reasonable to have her return in the morning to start IOL with normal labs, BPs and FHTS. 5. Pt to monitor BP at home and notify us if any other readings are >140/90, onset of JACK, vision changes, RUQ pain, Abd pain, vaginal bleeding not related to membrane sweep done with consent. 6. Pt to return at 0730 for IOL. Can consider PIT or arom with current saunders of 6. 7. Pt agrees with plan and has no further questions at this time. Evaluation Vital signs: Vital Signs - 24 hr 07/06/24 11:49 07/06/24 11:54 Pulse Rate 93 Blood Pressure 133/87 Pulse Oximetry 98 97 Comments: Vitals Reviewed Constitutional:? Alert and oriented x3 HEENT:? Normocephalic, atraumatic Neck:? Supple Lungs:? Clear to auscultation bilaterally Heart:? Regular rate and rhythm, no murmur, rub or gallop Abdomen:? Soft, nontender, and gravid. Vertex by Noah's, confirmed with US a short time ago and palpated suture with exam. Extremities:? No edema or erythema Reflexes of BLE: +3/4, one beat clonus bilaterally Cervix: 1.5 cm/50%/-2 station/vertex/ soft/midposition/BBOW with contraction, membranes swept with consent. NST: 130 bpm/moderate variability/accelerations present/decelerations-possible earlys/contractions q1-2min x 50-90sec, not felt by patient Final Diagnosis (1) BMI 50.0-59.9, adult: Status: Acute (2) : Status: Acute (3) History of anxiety: Status: Chronic (4) History of depression: Status: Chronic Problem details: Patient has been stable on Venlafaxine for many years -Continue venlafaxine (5) Gestational hypertension: Status: Acute Total Time Spent Total Time Spent: 45min
[2024-07-06 12:07] LABS: Hematocrit 34.4 % (33.0-51.0); Hemoglobin* 11.2 gm/dL (12.0-16.0); Mean Corpuscular HGB Conc 33 gm/dL (32-36); Mean Corpuscular Hemoglobin 26 pg (26-34); Mean Corpuscular Volume 81 fL (80-100); Platelet Count* 278 K/uL (140-440); Red Blood Count 4.24 m/uL (4.00-5.20); White Blood Count* 8.49 K/uL (4.50-11.00)
[2024-07-06 12:11] LABS: Slide Review Reflex No
[2024-07-06 12:12] VITALS: BP 127/80; PULSE 97
[2024-07-06 12:24] LABS: Alanine Aminotransferase* 13 U/L (4-35); Aspartate Amino Transferase* 25 U/L (12-35); Creatinine* 0.5 mg/dL (0.5-1.5); Estimated Glomerular Filt Rate 129 ml/min
[2024-07-06 12:25] LABS: Blood Urea Nitrogen* 6 mg/dL (5-24)
[2024-07-06 12:27] VITALS: BP 135/82; PULSE 85
[2024-07-06 12:37] LABS: Total Protein Urine < 5 mg/dL
[2024-07-06 12:38] LABS: Creatinine Urine 308.8 mg/dL; Protein Creatinine Ratio Urine 0.02 (0-0.19)
--- NOTE | 2024-07-06 13:07 | PC.OBNST ---
NST Note NST Note Start: 07/06/24 11:39 Freq: ONCE Status: Active Protocol: Document 07/06/24 13:06 MINERVA (Rec: 07/06/24 13:07 MINERVA Desktop) NST Note 2 Para (# of births) 1 EDC 07/20/24 Gestational Age In Weeks & Days 38 Weeks & 0 Days High Risk Factors High Blood Pressure - Gestational Patient Presented with Complaint(s) of Other Other Complaints Elevated BP Reactive Yes Appropriate for Gestational Age Yes SUAD Waters RN Date 07/06/24 Reactive Yes Appropriate for Gestational Age Yes SUAD Fox RN Date 07/06/24 OB NST charge Yes Complete NST Note via Write Note Yes The provider's electronic signature indicates the NST is reactive/appropriate for gestational age. *Note to provider: If an addendum is required, open the patient's chart and click on the note under the Nurse/Allied Health tab.
== END 2024-07-06 13:05 | disposition home or self-care (01) ==
LOC: OB OUT 11:33 → OB 11:35
PROVIDERS: Visit Provider Midwife
DX: O13.3 Gestational [pregnancy-induced] hypertension without significant proteinuria, third trimester (principal); Z3A.38 38 weeks gestation of pregnancy
CPT/HCPCS: 36415; 59025; 76819; 82565; 82570; 84156; 84450; 84460; 84520; 85027; G0463

== ENCOUNTER 2024-07-07 07:56 | Inpatient (IN) | payer BC, SELFPAY ==
[2024-07-07] VITALS (14 sets, daily range): BP systolic 123–140; BP diastolic 69–90; PULSE 71–115; RESP 16–18; TEMP 36.4–37.2; O2SAT 98–100; BMI 53.9
--- NOTE | 2024-07-07 09:18 | P.LDBA_ITS ---
Subjective History of Present Illness Date Seen: 07/07/24 Narrative: Patient is being admitted to Labor and Delivery for induction of labor for GHTN. She is a 29 year old at 38.1 weeks gestation. Her full history and physical was dictated by Mary Carmen Garcias CNM on 06/28/24. Please see this for details. Specific Issues/Plans : Hliario H&P 06/28/24 by Mary Carmen Garcias CNM #Hx of PPROM and delivery at 32 5/7 weeks gestation Offered early MFM consult, wants-referral sent at 12 weeks MFM recommendations: -TV cervical lengths Q 2 wks until 23-24wks, scheduled with MFM 20 wks WNL 24wks: normal at 23 7 as noted below. No additional scans recommended -Urine culture every trimester with aggressive tx of bacteriuria -1st tri-neg -2nd tri- neg -3rd tri - neg #Pre- BMI 47 Baseline Labs to include HgB A1C: 5.1 Referral to signal integrity engineer: ordered, did not schedule Referral to anesthesia: ordered, she has declined this Referral to OBGYN: seen by Dr. Kumar 04/04/24 20-week Level II detailed ultrasound, consult with MFM-WNL, cervical length WNL Early screening for GDM (1-hour) at 16-20 weeks: 88, 28w-74 MF recommendations: -rpt growth at 28 and 34 wks (ordered)-90% at 34wks -weekly BPP at 34 wks for BMI >47-scheduled #Anxiety and depression Managed with Venlafaxine Ultrasounds: 03/08 = 6/7 weeks: Normal fluid, posterior placenta, MVP 7.9, cervical length 36.4 mm 03/24 =23 1/7 weeks: breech, SDP 6.8 cm, EFW 79%, AC 75%, normal anatomy, cervical length 34.4 mm Tdap given: 05/11/24 RSV: 05/11/24 OB - Problem Based A/P Additional Plan (1) Encounter for induction of labor: Status: Acute (2) Gestational hypertension: Status: Acute Plan Assessment:?? at 38.1 weeks gestation?? GBS negative? Patient is coping well with challenges of labor.?? Labor type: Induced, not in labor? Category 1 FHR pattern.? complicated by: #Hx of PPROM and delivery at 32 5/7 weeks gestation, Pre- B NE 47 Anxiety and depression Managed with Venlafaxine Plan:?? * ?Admit to L & D? * IV access: SL * Monitoring per policy: continuous ? * Candidate for analgesia of choice.? Planning Fentanyl for pain management * Reviewed risks and benefits of IOL with Cook balloon, Pitocin vs Cytotec/Cervidil. Plan IV Pitocin with favorable cervix * Monitor blood pressures. Consider repeat labs elevated in severe range. * Patient encouraged to reposition and ambulate to promote physiologic labor and . * Anticipate ? Delivery/Labor/Induction Plan Plan: induction Induction method: per pitocin protocol OB Exam Physical Exam Vital signs: VSS, afebrile? General Appearance:? Calm, cooperative.? No acute distress.? Normal affect.? Psychiatric Exam: Alert and oriented, appropriate affect? HEENT: normocephalic, neck supple, full ROM? Respiratory:? Symmetrical chest wall movement.? Normal respiratory effort.? Clear to auscultation? Cardiac:? regular rate and rhythm? Abdomen: Gravid, non tender? Extremities:? normal and trace edema? Skin: warm, dry.??? Ctx:? Q 8 min apart.? Mild? ? ? FHTs:? Baseline: 135.? Variability: moderate.?? Accels: +.??? Decels:? -.? SVE: 3/70/0? Membranes: intact??? Detailed Labor and Delivery Exam Patient Gravid: Yes
[2024-07-07] MEDS: OXYTOCIN 30 unit/500 ML in NS 30 UNIT/500 ML BAG IVPB (09:44)
[2024-07-07] MEDS: LACTATED RINGERS 1000 ML 1,000 ML 125 ML IV ×2 (09:44→17:45)
--- NOTE | 2024-07-07 12:38 | PM.OBPNL ---
Subjective Time Seen by Provider: 11:10 Date Seen: 07/07/24 Narrative: ?Nicolasa is coping well with labor pain/contractions. ?Hilario is with her for support. ?She reports feeling some contractions, appears comfortable in bed at this time and not desiring anything for pain right now. ? Objective Exam: VSS, afebrile General Appearance:? Calm, cooperative. ?No acute distress. ? Psychiatric Exam: Alert and oriented, appropriate affect Abdomen: Gravid Ctx: ?Q 4 min apart. ?Mild ? ? FHTs: ?Baseline: 145. ? ? Variability: moderate. ?Accels: +. ? ?Decels: ?-. SVE: deferred at this time Membranes: Intact ? Vital Signs: Last Vital Signs Temp 97.6 F 07/07/24 11:39 Pulse 100 07/07/24 11:39 BP 129/88 07/07/24 11:39 Plan Plan: Assessment:?? at 38.1 weeks gestation?? GBS negative Patient is coping well with challenges of labor.?? Labor type: Induced, Early labor? Category 1 FHR pattern.? complicated by: complicated by: #Hx of PPROM and delivery at 32 5/7 weeks gestation, Pre- BMI 47 Anxiety and depression Managed with Venlafaxine Labor complications: Gestational hypertension ? Plan:?? Continue with IV Pitocin per protocol Continue with routine intrapartum cares as ordered.?? Patient encouraged to move and change positions to promote physiologic labor and .?? Nonpharmacologic comfort measures per patient preference. Candidate for analgesia of choice if desired. Monitor BP, redraw labs if consistently elevated. Anticipate progress to NVD. ?
--- NOTE | 2024-07-07 17:08 | PM.OBPNL ---
Subjective Date Seen: 07/07/24 Narrative: ?Nicolasa is coping well with labor pain/contractions. ?Hilario is with her for support. ?She is not feeling a lot of discomfort with her contractions at this time. Her Pitocin induction continues per protocol. ? Objective Exam: VSS, afebrile General Appearance:? Calm, cooperative. ?No acute distress. ? Psychiatric Exam: Alert and oriented, appropriate affect Abdomen: Gravid Ctx: ?Q 2-3 min apart. ?Mild ? ? FHTs: ?Baseline: 135. ? ? Variability: moderate. ?Accels: +. ? ?Decels: ?-. SVE: /0 ballotable Membranes: Intact ? Vital Signs: Last Vital Signs Temp 97.6 F 07/07/24 11:39 Pulse 83 07/07/24 15:29 BP 127/83 07/07/24 15:29 Plan Plan: Assessment:?? at 38.1 weeks gestation?? GBS negative Patient is coping well with challenges of labor.?? Labor type: Induced, Early labor? Category 1 FHR pattern.? complicated by: complicated by: complicated by: #Hx of PPROM and delivery at 32 5/7 weeks gestation, Pre- BMI 47 Anxiety and depression Managed with Venlafaxine Labor complications: Gestational hypertension ? Plan:?? Continue with IV Pitocin per protocol Consider AROM when head better engaged in pelvis Continue with routine intrapartum cares as ordered.?? Patient encouraged to move and change positions to promote physiologic labor and .?? Nonpharmacologic comfort measures per patient preference. Candidate for analgesia of choice if desired. Anticipate progress to NVD. ?
--- NOTE | 2024-07-07 19:58 | PM.OBPNL ---
Subjective Date Seen: 07/07/24 Narrative: ?Nicolasa is not reporting any increase in discomfort with contractions. ?Hilario is with her for support. ?We discussed a change of plan as she has been on Pitocin since this morning, approximately 11 hours without change in cervical dilation or increase in intensity of contractions. She was agreeable to stopping IV Pitocin at this time and moving to vaginal Cytotec times two doses. If not in labor after the two doses we will restart IV Pitocin 3 hours after second dose if needed. Encouraged her to sleep this evening and she has MS and Vistaril ordered PRN. Objective Exam: VSS, afebrile General Appearance:? Calm, cooperative. ?No acute distress. ? Psychiatric Exam: Alert and oriented, appropriate affect Abdomen: Gravid Ctx: ?Q irregular 2-5 min apart. ?Mild ? ? FHTs: ?Baseline: 150. ? ? Variability: moderate. ?Accels: +. ? ?Decels: ?-. SVE: deferred Membranes: Intact ? Vital Signs: Last Vital Signs Temp 99.0 F 07/07/24 17:12 Pulse 93 07/07/24 19:23 BP 133/84 07/07/24 19:23 Plan Plan: Assessment:?? at 38.1 weeks gestation?? GBS negatvie Labor type: Induced, not in labor? Category 1 FHR pattern.? complicated by: #Hx of PPROM and delivery at 32 5/7 weeks gestation, Pre- BMI 47 Anxiety and depression Managed with Venlafaxine Labor complications: Gestational hypertension Plan:?? Stop IV Pitocin, start vaginal Cytotec once appropriate times has passed since Pitocin stopped. Cytotec two doses per protocol, if not in labor then plan to restart Pitocin IV. Consider AROM when able. Continue with routine intrapartum cares as ordered.?? Patient encouraged to move and change positions to promote physiologic labor and .?? Nonpharmacologic comfort measures per patient preference. Candidate for analgesia of choice if desired. BP's stable, consider labs if consisitently elevated Anticipate progress to NVD. ?
[2024-07-07] MEDS: MORPHINE 10 MG/ML inj IM (20:16)
[2024-07-07] MEDS: hydrOXYzine pamoate 25 MG CAPSULE 100 MG PO (20:17)
[2024-07-07] MEDS: miSOPROStoL 25 MCG/0.25 TABLET VAGINAL ×2 (20:51→23:51)
[2024-07-07] MEDS: VENLAFAXINE ER 75 MG CAPSULE 150 MG PO (21:42)
[2024-07-08] VITALS (23 sets, daily range): BP systolic 108–138; BP diastolic 55–85; PULSE 70–97; RESP 14–16; TEMP 36.5–37.2; O2SAT 100
[2024-07-08] MEDS: LACTATED RINGERS 1000 ML 1,000 ML 121 ML IV (05:32)
--- NOTE | 2024-07-08 08:11 | P.OBPN_ITS ---
Subjective Time Seen by Provider: 09:30 Date Seen: 07/08/24 Narrative: Nicolasa was restarted on Pitocin titration around 0400 this morning. Around 0700 she began to feel more pain with contractions and per RN exam was found to be 4cm/80%/0. She was using nitrous but around 0740 she requested IV fentanyl. However when she was rechecked around 0800 she was found to be 7cm/90% so it was withheld. She was found to have a very bulging bag of water at that time and was offered AROM. Risks and benefits were discussed and she was agreeable to it. AROM with a large amount of clear fluid. She Has continued with labor in multiple positions. FHR was had variable decelerations with many of the c ontractions with good recovery to baseline. She is feeling a lot of pressure in the front of her pubic bone so there is high suspicion for an asynclitic baby. Will try more position changes such as lift and tucks, inversions, and side lying release to try to help position. Objective Vital Signs: Last Vital Signs Temp 97.7 F 07/08/24 05:53 Pulse 86 07/08/24 06:55 Resp 16 07/08/24 05:53 BP 135/77 07/08/24 06:55 Pulse Ox 100 07/08/24 05:54 Pelvic Exam Dilation (cm): 7 Effacement (%): 90 Station: 0 Contractions Monitor mode: External Contraction Frequency: 2-4 min Contraction pattern: Regular Contraction intensity: Strong/Firm Pitocin Rate (mU/min): 6 Assessment Assessment: active labor Station: 0 Amniotic Membrane Status: AROM Status: Category ll Heart Rate Baseline: 130 Residential Tech Variability: Moderate (6-25) Monitor Accelerations: Present Monitor Decelerations: Variable Plan Plan: Assessment:?? at 38.2 weeks gestation?? GBS negative Labor type:IOL in active labor? Category 2 FHR pattern.? complicated by: Hx of PPROM and delivery at 32 5/7 weeks gestation, Pre- BMI 47 Anxiety and depression Managed with Venlafaxine Labor complications: Gestational hypertension Plan:?? Pitocin titration restarted. AROM completed with clear fluid. Continue with routine intrapartum cares as ordered.?? Patient encouraged to move and change positions to promote physiologic labor and and position.?? Nonpharmacologic comfort measures per patient preference. Candidate for analgesia of choice if desired. Currently utilizing nitrous. BP's stable, consider labs if consistently elevated. Anticipate NVD.
--- NOTE | 2024-07-08 13:09 | W.PM.OBVAGDE ---
OB Procedure Vag Delivery Mother Details Mother Details: The patient is a 29 year-old, 2, Para 1, admitted on 07/07/24 at 38.2 Days gestation. : 2 Para: 2 Weeks Gestation: 38.2 Admission Date: 07/07/24 Additional Details Amniotic Membrane Status: AROM Amniotic Membrane Rupture Date: 07/08/24 Amniotic Membrane Rupture Time: 08:04 Amniotic Membrane Fluid Description: Clear (terminal meconium with delivery) Analgesia/Anesthesia Type: Nitrous Oxide (occasionally but not used with pushing) Waterbirth: No Pitcoin: Yes Intrapartal Events: Distress Induction Method: per misoprostol protocol and per pitocin protocol Delivery augmentation: rupture of membranes Labor Onset: 06:30 Complete: 10:37 Pushin:30 (spontaneous pushing before confirmed complete ) Heart: heart tones during second stage were category 2 and not reassuring. Baseline 150, moderate variability, + accels and variable and early decels for most of second stage. In the last 20 minutes of second stage variability decreased from moderate to minimal to absent with deep variables to the 50's Dr. Agustín Pena was present in the building and was called to evaluate at [1230]. On her arrival to the room a large crown presented and Nicolasa quickly progressed to delivery with the next push. The pediatric provider was called and presence was requested for delivery at the time that the MD providers presence was requested. Delivery Details Delivery Date: 07/08/24 Delivery Time: 12:39 Route of delivery: Infant Gender: Male Viability: Alive; Heart Rate Present Position at Delivery: OA Delivery Details: Nicolasa was admitted for IOL for gestational hypertension. She was started on Pitocin, Switched to 2 doses of Cytotec then back to Pitocin when she did progress to active labor. AROM noted at 0804 with clear fluid. Patient was complete at 1037 and spontaneously pushing with some contractions at 1030. She was coached and actively pushing after confirmed complete. of a viable male at 1239 in lithotomy in the bed. Vertex delivered CHANDU. No shoulder. Nuchal x1 reduced before delivery of the shoulders. Body delivered with maternal effort and without incident. passed to mothers abdomen. Due to the tracing, lack of tone and pale coloring cord was clamped and cut immediately and baby was brought to the warmer for evaluation. He was breathing on her own and had a good heart rate but effort was poor so PPV was initiated at the warmer. APGARS were 5 at one minute, 7 at five minutes, and 8 at ten minutes respectively. Mouth was bulb suctioned. Intact placenta with a 3 vessel cord delivered spontaneously at 1249. Cord gasses were attempted to be collected but only a venous able to be obtained. Fundus firm. 1st degree with a 1mm portion that was 2nd degree identified. It was well approximated even with legs in the stirrups and hemostatic. With shared decision making it was decided not to repair the 2nd degree portion. QBL 50mL. Mother stable; mother plans to breastfeed. Infant weight pending.? 1 Minute Interval Total Score: 5 5 Minute Interval Total Score: 7 10 Minute Interval Total Score: 8 Additional Details Shoulder Dystocia: No Placenta Delivery Time: 12:49 Placental Delivery Description: Spontaneous Procedure Done: Global Blood Loss: 50 Laceration: Perineal - 1st Degree (1mm portion that was 2nd degree. Laceration not repaired. ) Episiotomy Description: None Blood Loss Measurement Type: QBL Bakri Used: No Sponge/Need Count Correct: Yes Cord Vessel Description: 3 Vessels, Nuchal Cord and Reduced Event Summary Status: Mother stable after delivery. Disposition: floor
[2024-07-08] MEDS: ACETAMINOPHEN 500 MG TABLET 1000 MG PO (19:51)
[2024-07-08] MEDS: VENLAFAXINE ER 75 MG CAPSULE 150 MG PO (21:06)
[2024-07-09] VITALS (8 sets, daily range): BP systolic 113–135; BP diastolic 65–77; PULSE 71–89; RESP 16; TEMP 36.4–36.9; O2SAT 96–97
[2024-07-09] MEDS: ACETAMINOPHEN 500 MG TABLET 1000 MG PO ×3 (01:00→20:27)
[2024-07-09] MEDS: DOCUSATE SODIUM 100 MG CAPSULE PO (09:02)
--- NOTE | 2024-07-09 11:06 | PM.OBPNVD1 ---
OB - PN:Subj Subjective Date Seen: 07/09/24 Patient comments OB post-: no complaints, pain well controlled, tolerating diet and flatus present [place] status: and doing well [place] feeding status: exclusively Narrative: Nicolasa feels well.? Her pain is well controlled with current medications.? She has no new complaints.? Urinary output is adequate and she is voiding without difficulty.? Has a good appetite, is tolerating a general diet, is passing flatus, and has had a bowel movement.? Has small amount of rubra lochia.? She is ambulating well.?She is and denies concerns with how it is going. Blood pressures have been WNL. Baby is doing well. OB - PN: Obj Exam Physical Exam: Vital signs: Temp Pulse Resp BP Pulse Ox O2 Del Method 98.0 F 71 16 119/77 97 Room Air 07/09/24 09:52 07/09/24 09:52 07/09/24 09:52 07/09/24 09:52 07/09/24 09:52 07/09/24 09:52 Narrative: GENERAL APPEARANCE:? normal affect, alert, no distress? MOOD:? appropriate? CHEST:? clear to auscultation and percussion? HEART:? regular rate and rhythm? ABDOMEN:? soft, non-tender the uterine fundus is U/2 and is appropriate for the stage of recovery.? PERINEUM:? mild edema of the perineum, there is a 1st degree unrepaired laceration that is healing well.? EXTREMITIES:? normal and no edema? OB - PN: A/P Delivery Assessment and Plan (1) Gestational hypertension: Status: Acute (2) Lactating mother: Status: Acute (3) care following vaginal delivery: Status: Acute Plan day: 1 Plan: routine care Comments: Anticipate discharge home tomorrow.
[2024-07-09] MEDS: IBUPROFEN 600 MG TABLET PO (13:42)
[2024-07-09] MEDS: VENLAFAXINE ER 75 MG CAPSULE 150 MG PO (20:28)
[2024-07-10] VITALS: BP 129/65; PULSE 92; RESP 18; TEMP 36.8; O2SAT 97
[2024-07-10 05:06] VITALS: BP 120/79; PULSE 67; RESP 18; TEMP 36.7; O2SAT 96
[2024-07-10] MEDS: IBUPROFEN 600 MG TABLET PO (06:11)
--- NOTE | 2024-07-10 07:48 | P.DS_ITS ---
DS: Providers Provider Date Seen: 07/10/24 Date of admission: 07/07/24 07:56 Primary care physician: Not a Local Provider Admitting Clinician: Hyun Vigil CNM Attending Physician on discharge: Michael TEIXEIRA APRN Date of Discharge: 07/10/24 DS: Diagnosis Discharge Diagnosis (1) care following vaginal delivery: Status: Acute (2) Lactating mother: Status: Acute (3) Gestational hypertension: Status: Acute (4) BMI 50.0-59.9, adult: Status: Acute Exam Narrative: Exam Narrative: GENERAL APPEARANCE:? normal affect, alert, no distress MOOD:? appropriate CHEST:? clear to auscultation HEART:? regular rate and rhythm ABDOMEN:? soft, non-tender the uterine fundus is 2 cm below Umbilicus, Midline and is appropriate for the stage of recovery. PERINEUM:? mild edema of the perineum, there is a Perineal Laceration with no erythema EXTREMITIES:? normal and minimal edema Const: Vital Signs, click to edit/add: Vital Signs - 24 hr 07/09/24 09:52 07/09/24 13:35 07/09/24 17:01 Temperature 98.0 F 97.6 F 98.4 F Pulse Rate [Blood Pressure Cuff] 71 72 75 Respiratory Rate 16 16 16 Blood Pressure [Ri ght Arm] 119/77 114/76 113/73 Pulse Oximetry 97 96 96 Oxygen Delivery Me thod Room Air Room Air Room Air 07/09/24 19:54 07/09/24 20:27 07/09/24 20:36 Temperature 98.4 F 98.4 F 98.3 F Pulse Rate [Blood Pressure Cuff] 77 Respiratory Rate 16 Blood Pressure [Ri ght Arm] 129/65 Pulse Oximetry 97 Oxygen Delivery Me thod Room Air 07/10/24 00:00 07/10/24 05:06 Temperature 98.2 F 98.1 F Pulse Rate [Blood Pressure Cuff] 92 67 Respiratory Rate 18 18 Blood Pressure [Ri ght Arm] 129/65 120/79 Pulse Oximetry 97 96 Oxygen Delivery Me thod Room Air Room Air OB - DS: Summary Hospital Course Hospital Course: Nicolasa is a 29 y.o. G 2 P 1102 who was admitted to [facility]OL for GHTN.? She had a NVD that was uncomplicated. The patient feels well.? The pain is well controlled with current medications.? She has no new complaints.? She is breast feeding and reports things are going well. the patient has done well.? Vitals have been stable.? She has remained afebrile.? Has a good appetite, is tolerating a general diet.? She is voiding without difficulty.? She is passing gas and has had a bowel movement.? She is ambulating and denies any dizziness.? Has small amount of rubra lochia. She is planning condoms for prevention.? ?? Problems: none, normotensive? ? plan:? Discharge home with baby.? Follow up in 3d, 2 weeks and 6 weeks.? , may see if needed? Hgb 11.2. ? GHTN diagnosed by elevated BP greater than 4 hours apart? Labs WNL or stable with trending? Discharge home with BP cuff if does not already have one? Follow up in 3-5 days? Call for signs/symptoms of preeclampsia? Peripartum Data delivery method: Vaginal Laceration description: Perineal - 1st Degree Episiotomy description: None complications: none Gender: Male Discharge Plan: Home Status at Discharge Overall status at discharge: patient is progressing back to baseline Time Spent with Patient Time attestation: Total time spent providing and/or coordinating discharge services: Time spent: Less than 30 minutes Discharge Plan Discharge Disposition: Home, Self-Care Date of Admission: 07/07/24 07:56 Attending Provider on Discharge: Kelley Caputo Primary Care Provider: Provider,Not a Local Condition: Stable Anticipated Discharge Date/Time: 07/10/24 12:00 Discharge Medications: Continued DHA 200 mg capsule 200 mg PO DAILY venlafaxine 150 mg capsule,extended release 24hr 150 mg PO QPM Discontinued aspirin 81 mg tablet,delayed release (DR/EC) 81 mg PO QDAY Discharge Orders: Discharge Order (Routine); Ordered 07/10/24 Ordered By: Kelley Caputo Patient Education: OB Care, OB Vaginal/Breast Feeding Additional Instructions: Discharge instructions were reviewed with the patient including signs and symptoms of infection and home going medications Nothing vaginally for 6 weeks: no tampons or intercourse Do not drive while taking narcotic pain medication(s) Off Work or School for 6 weeks Symptoms to report to doctor: * Bleeding that saturates more than one pad per hour * Passing clots larger than the size of a golf ball * Pain not relieved by prescribed medication * Fever above 100.4 degrees Fahrenheit * A foul vaginal odor * Difficulty in emotions, mood, and functions * Thoughts of hurting yourself and/or * Painful, reddened area in your breast * Any drainage, redness, or tenderness in your IV/epidural site * Severe headache that doesn't improve after taking medications * Changes in vision, including temporary loss of vision, blurred vision, and/or light sensitivity * Upper abdominal pain (usually under ribs on the right side) * Decrease in urination or painful, frequent urinating * Chest pain * Shortness of breath * Tenderness or pain with redness and/swelling in the calf(s) of your leg [facility] for [facility] BP check?07/12 or 07/13. Call with BP greater than or equal to 160/110 2-week visit: discuss feeding concerns, review control options and screen for anxiety/depression. 6-week visit for an annual exam. consultation services are available to all mothers and babies for the first year after delivery.? To make an appointment, please call [phone]. For pain control of perineum, breast and pelvic pain, take 600 mg Ibuprofen every 6 hours as needed by mouth or 1000 mg acetaminophen (Tylenol) every 6 hours by mouth as needed. You can alternate these so you are taking something every 3 hours as needed. A heating pad can also be used for your abdomen or breasts. You may also take docusate sodium up to twice daily to soften your stools and help to prevent constipation. You may wean off of it when your stools return to normal.?? Activity Level: Activity as Tolerated and No strenuous activity Discharge Diet: Regular Follow Up Appointments: [facility] [Provider Group] Forms: MyHealth Info Instructions
[2024-07-10 09:30] VITALS: BP 120/82; PULSE 77; RESP 18; TEMP 36.5; O2SAT 98
== END 2024-07-10 12:20 | disposition home or self-care (01) | DRG 560 ==
PROVIDERS: Advanced Practice Midwife; Admitting Provider Advanced Practice Midwife; Visit Provider Advanced Practice Midwife
DX: O13.4 Gestational [pregnancy-induced] hypertension without significant proteinuria, complicating childbirth (principal); O76 Abnormality in fetal heart rate and rhythm complicating labor and delivery; O70.1 Second degree perineal laceration during delivery; O99.344 Other mental disorders complicating childbirth; F41.9 Anxiety disorder, unspecified; F32.A Depression, unspecified; Z87.51 Personal history of pre-term labor; Z3A.38 38 weeks gestation of pregnancy; Z37.0 Single live birth; O99.210 Obesity complicating pregnancy, unspecified trimester
CPT/HCPCS: 51798; 59200; 86592; 88307; 88341; 88342; A9270; J2270; J7120

== ENCOUNTER 2024-07-14 13:55 | Outpatient (CLI) | payer BC, SELFPAY | END 2024-07-14 13:56 | disposition home or self-care (01) | PROVIDERS: Visit Provider Advanced Practice Midwife | DX: O13.5 Gestational [pregnancy-induced] hypertension without significant proteinuria, complicating the puerperium (principal) | CPT/HCPCS: 82565; 84450; 84460; 84520 ==

== ENCOUNTER 2024-08-28 15:10 | Outpatient (CLI) | payer BC, SELFPAY ==
[2024-08-31 07:47] LABS: HPV Source Cervix; HPV, High Risk by TMA Detected
[2024-08-31 20:26] LABS: HPV Genotype 16 by TMA Not Detected; HPV Genotype 18/45 by TMA Not Detected; HPVG Source Cervix
== END 2024-08-28 15:11 | disposition home or self-care (01) ==
PROVIDERS: Visit Provider Advanced Practice Midwife
DX: Z12.4 Encounter for screening for malignant neoplasm of cervix (principal); Z11.51 Encounter for screening for human papillomavirus (HPV); Z39.2 Encounter for routine postpartum follow-up
CPT/HCPCS: 87624; 87625; 88141; 88142